=== PATIENT | female | born 1955 | race Caucasian/White ===

== ENCOUNTER 2020-05-23 07:27 | Emergency (ER) | payer BC ==
[2020-05-23] MEDS ORDERED: Lidocaine 1% (PF) 30 ML VIAL ONE (08:55)
[2020-05-23] MEDS ORDERED: Boostrix 0.5 ML (Tdap) VIAL ONE (08:56)
[2020-05-23] MEDS ORDERED: Bacitracin 1 PK ONE (09:32)
== END 2020-05-23 09:35 | disposition home or self-care (01) ==
LOC: CSHERS 07:27
DX: S61.011A Laceration without foreign body of right thumb without damage to nail, initial encounter (principal); E03.9 Hypothyroidism, unspecified; E78.5 Hyperlipidemia, unspecified; E78.00 Pure hypercholesterolemia, unspecified; Z23 Encounter for immunization; W26.8XXA Contact with other sharp object(s), not elsewhere classified, initial encounter
CPT/HCPCS: 12001; 90471; 90715; J2001

== ENCOUNTER 2021-07-20 14:51 | Emergency (ER) | payer BC, OTHER ==
[2021-07-20] MEDS ORDERED: Ondansetron ODT 4 MG TAB ONE (16:19)
[2021-07-20] MEDS ORDERED: Ibuprofen 200 MG TAB ONE (16:20)
== END 2021-07-20 17:40 | disposition home or self-care (01) ==
LOC: CSHERS 14:51
DX: S93.401A Sprain of unspecified ligament of right ankle, initial encounter (principal); S90.31XA Contusion of right foot, initial encounter; E78.5 Hyperlipidemia, unspecified; E78.00 Pure hypercholesterolemia, unspecified; M06.9 Rheumatoid arthritis, unspecified; M19.90 Unspecified osteoarthritis, unspecified site; W01.0XXA Fall on same level from slipping, tripping and stumbling without subsequent striking against object, initial encounter; X50.1XXA Overexertion from prolonged static or awkward postures, initial encounter; Y92.89 Other specified places as the place of occurrence of the external cause; Y99.0 Civilian activity done for income or pay
CPT/HCPCS: 99283; Q0162

== ENCOUNTER 2021-11-17 13:02 | Outpatient (CLI) | payer MEDICARE, OTHER | END 2021-11-17 13:03 | disposition home or self-care (01) | LOC: CSHMAMMO 13:02 | PROVIDERS: ATTEND Family Medicine | DX: Z12.31 Encounter for screening mammogram for malignant neoplasm of breast (principal); Z13.820 Encounter for screening for osteoporosis; Z78.0 Asymptomatic menopausal state; M85.851 Other specified disorders of bone density and structure, right thigh; M85.852 Other specified disorders of bone density and structure, left thigh; Z98.890 Other specified postprocedural states | CPT/HCPCS: 77063; 77067; 77080 ==

== ENCOUNTER 2022-02-19 16:06 | Emergency (ER) | payer MEDICARE, OTHER ==
[2022-02-19] MEDS ORDERED: Lidocaine 1% (PF) 30 ML VIAL ONE (18:04)
== END 2022-02-19 19:22 | disposition home or self-care (01) ==
LOC: CSHERS 16:06
DX: S61.212A Laceration without foreign body of right middle finger without damage to nail, initial encounter (principal); E03.9 Hypothyroidism, unspecified; E78.00 Pure hypercholesterolemia, unspecified; F17.210 Nicotine dependence, cigarettes, uncomplicated; W23.0XXA Caught, crushed, jammed, or pinched between moving objects, initial encounter
CPT/HCPCS: 12001; J2001

== ENCOUNTER 2022-03-09 11:22 | Outpatient (CLI) | payer MEDICARE, OTHER | END 2022-03-09 11:23 | disposition home or self-care (01) | LOC: CSHMRI 11:22 | PROVIDERS: ATTEND Physical Therapist | DX: M25.571 Pain in right ankle and joints of right foot (principal); M25.572 Pain in left ankle and joints of left foot; R20.2 Paresthesia of skin; M47.816 Spondylosis without myelopathy or radiculopathy, lumbar region | CPT/HCPCS: 72148 ==